=== PATIENT | female | born 1945 | race Caucasian/White ===

== ENCOUNTER → 2022-09-07 09:16 | Outpatient (BNVA) | payer MEDICARE, SELFPAY | PROVIDERS: PCP Internal Medicine; Visit Provider Nurse Practitioner Family | DX: R30.9 Painful micturition, unspecified (principal); N39.0 Urinary tract infection, site not specified; Z68.30 Body mass index [BMI] 30.0-30.9, adult | CPT/HCPCS: 81003; 87086; 87184 ==